=== PATIENT | female | born 1960 | race Caucasian/White ===

== ENCOUNTER → 2017-01-05 | Outpatient (CLI) | payer MEDICARE ==
--- NOTE | 2017-01-05 13:11 | RADIOLOGY REPORT PS360 ---
KNEE-3 VIEWS-RT HISTORY: RT KNEE PAIN ORDERING PHYSICIAN: JERRY CARVALHO PATIENT AGE: 56 years COMPARISON: None FINDINGS: No fracture or dislocation. No lytic or blastic change. Normal mineralization. No significant arthritic changes evident. There is increased density in the suprapatellar region suggesting small suprapatellar effusion IMPRESSION: Small knee joint effusion otherwise negative right knee
== END ==
LOC: RAD 10:34
DX: M25.561 Pain in right knee (principal)